=== PATIENT | female | born 2000 ===

== ENCOUNTER 2023-05-14 02:28 | Emergency (ER) | payer MEDICAID ==
[~2023-05-14] VITALS: Ht 167.6 cm; Wt 63.6 kg
[2023-05-14 02:43] VITALS: TEMP 99.2
[2023-05-14] MEDS ORDERED: ONDANSETRON HCL 4 MG/2 ML VIAL IVP ONE (02:45)
[2023-05-14] MEDS ORDERED: LEVE500T20 PO (02:45)
[2023-05-14] MEDS ORDERED: ARIP2TAB27 PO (02:45)
[2023-05-14] MEDS: SODIUM CHLORIDE 0.9% 1,000 ML IV ONE ×2 (02:56→04:36)
[2023-05-14 03:16] LABS: BASOPHILS % (AUTO) 0.2 % (0.0-2.0); EOSINOPHILS % (AUTO) 0.6 % (1.0-6.0); HEMATOCRIT 27.1 % (36-46); HEMOGLOBIN 8.6 g/dL (12.0-16.0); LYMPHOCYTES # (AUTO) 0.2 K/uL (1.0-4.8); LYMPHOCYTES % (AUTO) 3.2 % (22.0-44.0); MEAN CORPUSCULAR HEMOGLOBIN 22.7 pg (26.0-34.0); MEAN CORPUSCULAR HGB CONC 31.7 G/dL (31.0-37.0); MEAN CORPUSCULAR VOLUME 72 fL (80-100); MONOCYTES # (AUTO) 0.3 K/uL (0.1-1.0); MONOCYTES % (AUTO) 4.3 % (2.0-9.0); PLATELET COUNT (AUTO) 224 K/uL (150-450); RED BLOOD CELL COUNT(AUTO) 3.79 MIL/uL (4.00-5.20); RED CELL DISTRIBUTION WIDTH 16.3 % (11.5-14.5); WHITE BLOOD COUNT (AUTO) 7.6 K/uL (4.5-11.0)
[2023-05-14 03:17] LABS: NEUTROPHILS % (AUTO) 91.7 % (40.0-70.0)
[2023-05-14 03:31] LABS: ALANINE AMINOTRANSFERASE 15 U/L (12-78); ALBUMIN 2.8 g/dL (3.4-5.0); ALKALINE PHOSPHATASE 104 U/L (46-116); ANION GAP 12 mmol/L (8-16); ASPARTATE AMINOTRANSFERASE 18 U/L (15-37); BILIRUBIN,TOTAL 0.4 mg/dL (0.1-1.0); CALCIUM, TOTAL 7.9 mg/dL (8.8-10.5); CARBON DIOXIDE 23 mmol/L (22-29); CHLORIDE 104 mmol/L (98-107); CREATININE 0.57 mg/dL (0.60-1.30); GLOMERULAR FILTR. RATE CALC > 60 mL/min (>60); GLUCOSE,RANDOM 83 mg/dL (70-110); LIPASE 34 U/L (16-77); SODIUM SERUM 139 mmol/L (136-145); TOTAL PROTEIN, SERUM 6.3 g/dL (6.4-8.2); UREA NITROGEN, BLOOD 9 mg/dL (7-18)
[2023-05-14 03:32] LABS: POTASSIUM 2.9 mmol/L (3.5-5.1)
[2023-05-14 03:38] LABS: RBC MORPHOLOGY COMMENT ABNORMAL RBC MORPH
[2023-05-14] MEDS: POTASSIUM CHL 10 MEQ/WATER 50 ML IV SCH (04:23)
[2023-05-14] MEDS: METOCLOPRAMIDE HCL 5 MG/ML 2 ML VIAL IVP ONE (04:23)
[2023-05-14] MEDS ORDERED: ONDA-104 PO (04:38)
[2023-05-14] MEDS: LevETIRAcetam 1,000 MG in DEXTROSE 5%-WATER 100 ML IV ONE (04:52)
[2023-05-14] MEDS ORDERED: PREN1COM14 PO (06:59)
[2023-05-14 09:30] VITALS: BP 106/55; PULSE 91; RESP 18
== END 2023-05-14 09:45 | disposition home or self-care (01) ==
LOC: EMS 02:31
DX: O21.0 Mild hyperemesis gravidarum (principal); E87.6 Hypokalemia; E86.0 Dehydration; R56.9 Unspecified convulsions; Z91.040 Latex allergy status; Z3A.24 24 weeks gestation of pregnancy
CPT/HCPCS: 99291; 96365; 76805; 96361; 96367; 96375; 80053; 83690; 85025; 36415; J0712; J2765; J7060; J3480; J7030

== ENCOUNTER 2023-09-14 18:06 | Emergency (ER) | payer MEDICAID ==
[~2023-09-14] VITALS: Ht 165.1 cm; Wt 59.1 kg
[~2023-09-14 18:06] MED LIST: ARIP2TAB27 PO; LEVE-71 PO; ONDA-104 PO; PREN1COM14 PO
[2023-09-14] MEDS ORDERED: HYDR-4527 PO (18:11)
[2023-09-14] MEDS: PERTUSS(ACELL),DIPH,TET/PF 0.5 ML SYRINGE [ADULT] IM. ONE (18:46)
[2023-09-14 20:12] VITALS: BP 124/74; PULSE 89; RESP 16; TEMP 97.8
== END 2023-09-14 20:12 | disposition home or self-care (01) ==
LOC: EMS 18:06
DX: S61.012A Laceration without foreign body of left thumb without damage to nail, initial encounter (principal); F41.9 Anxiety disorder, unspecified; F32.A Depression, unspecified; Z91.040 Latex allergy status; W26.0XXA Contact with knife, initial encounter; Y93.89 Activity, other specified; Y92.89 Other specified places as the place of occurrence of the external cause; Y99.8 Other external cause status
CPT/HCPCS: 12001; 90471; 90715; 99283